=== PATIENT | male | born 1945 | race Caucasian/White ===

== ENCOUNTER 2016-10-23 10:24 | Emergency (ER) | payer MEDICARE ==
[~2016-10-23] VITALS: Ht 175.3 cm; Wt 80.2 kg
[~2016-10-23 10:24] MED LIST: CETI10 PO; OCUF0.3D OU; SIMV40TA PO; TAMS0.4C67 PO; WARF-20 PO; WARF-60 PO
[2016-10-23 10:50] VITALS: BP 119/74; PULSE 90; RESP 16; TEMP 98.8; O2SAT 98
[2016-10-23] MEDS ORDERED: OFLO0.3D9 EACH EAR (12:00)
[2016-10-23] MEDS ORDERED: TAMS5CAP PO (12:00)
[2016-10-23] MEDS ORDERED: WARF-20 PO (12:00)
[2016-10-23] MEDS ORDERED: WARF-60 PO (12:00)
[2016-10-23] MEDS ORDERED: SIMV40TA PO (12:00)
[2016-10-23] MEDS ORDERED: CETI10 PO (12:00)
[2016-10-23] MEDS ORDERED: LISI-519 PO (12:01)
--- NOTE | 2016-10-23 13:15 | PD ---
HPI Chief Complaint: ENT Complaint Time Seen by Provider: 13:06 Travel History International Travel<30 days: No Contact w/Intl Traveler<30days: No Traveled to known affect area: No History of Present Illness HPI 71-year-old male presents to the emergency Department with complaint of dry cough 3 days. Reports subjective fever but has not been able to take his temperature secondary to not having a thermometer. Reports a "little shortness of breath." Denies chest pain. Denies hemoptysis. Cough is worse at night. Reports mild nasal congestion. Denies nausea, vomiting. Does take a seasonal allergy medication that has helped dry up his nasal congestion. Has history of DVT and pneumothorax and is currently taking Coumadin. No aggravating factors. History of hypertension, diabetes, right nephrectomy. No other modifying factors or associated signs and symptoms. PFSH Past Medical History High Cholesterol: Yes Diminished Hearing: No Deep Vein Thrombosis: Yes (FREQUENT CLOTS) Influenza Vaccination: Yes PNEUMOCCOCAL Vaccine (Year): 2010 Past Surgical History Joint Replacement: Yes (L SHOULDER) Thoracic Surgery: Yes (IVC FILTER) Other Surgery: Yes (LEFT HERNIA; rt kidney) Social History Alcohol Use: No Tobacco Use: No Substance Use: No Allergies-Medications (Allergen,Severity, Reaction): Coded Allergies: Methocarbamol (Unverified Allergy, Unknown, 10/23/16) Terazosin (Unverified Allergy, Unknown, 10/23/16) Reported Meds & Prescriptions Reported Meds & Active Scripts Active Tessalon Perles (Benzonatate) 100 Mg Cap 100 Mg PO TID PRN Proair Hfa 8.5 GM Inh (Albuterol Sulfate) 90 Mcg/Act Aer 2 Puff INH Q4-6H PRN 108 mcg/actuation Reported Lisinopril 5 Mg Tab 5 Mg PO DAILY Warfarin 6 Mg Tab 6 Mg PO WED Warfarin 4 Mg Tab 4 Mg PO S,TUCKER,M,T,TH,F Flomax (Tamsulosin HCl) 0.4 Mg Cap 0.4 Mg PO HS Simvastatin 40 Mg Tab 40 Mg PO HS Ofloxacin Otic Drops 0.3 % Drops 5 Drop EACH EAR DAILY PRN Cetirizine (Cetirizine HCl) 10 Mg Tab 10 Mg PO DAILY Review of Systems Except as stated in HPI: all other systems reviewed are Neg Physical Exam Narrative GENERAL: Well-nourished, well-developed elderly, male patient, in no acute distress; afebrile SKIN: Warm and dry. No rash. HEAD: Atraumatic. Normocephalic. EYES: Pupils equal and round at 3 mm with brisk reaction. No scleral icterus. No injection or drainage. PERRLA. ENT: Mucosa pink and moist. No erythema or exudates. No uvular edema. No uvular , palatal, or tonsillar deviation. Airway patent. EARS: Bilateral pinnae and external canals appear within normal limits. Bilateral tympanic membranes without erythema, dullness or perforation. NECK: Trachea midline. No lymphadenopathy. CARDIOVASCULAR: Regular rate and rhythm. No murmur appreciated. RESPIRATORY: No accessory muscle use. Clear to auscultation; slightly decreased in bilateral bases. Breath sounds equal bilaterally. GASTROINTESTINAL: Abdomen soft, non-tender, nondistended. Hepatic and splenic margins not palpable. Bowel sounds are active 4 quadrants. MUSCULOSKELETAL: No obvious deformities. No clubbing. No cyanosis. No edema. NEUROLOGICAL: Awake and alert. Oriented 3. No obvious cranial nerve deficits. Motor grossly within normal limits. Normal speech. Moves all extremities. 5/5 strength to all extremities. PSYCHIATRIC: Appropriate mood and affect; insight and judgment normal. Data Data Last Documented VS Vital Signs Date Time Temp Pulse Resp B/P Pulse Ox O2 Delivery O2 Flow Rate FiO2 10/23/16 13:23 97 21 10/23/16 10:50 98.8 90 16 119/74 Orders Chest, Single Ap (10/23/16 13:06) Albuterol Neb (Albuterol Neb) (10/23/16 13:30) MDM Medical Decision Making Medical Screen Exam Complete: Yes Emergency Medical Condition: Yes Medical Record Reviewed: Yes Differential Diagnosis Acute bronchitis, viral illness, influenza Narrative Course 71-year-old male with dry cough 3 days. Reports subjective fever. Patient is afebrile and nontoxic appearing in the ER. He is in no acute distress and is without retractions or tachypnea. Oxygen saturation is 98% on room air. He is complaining of "a little bit of shortness of breath." Lungs sounds are clear and equal bilaterally with slightly decreased lung sounds in bilateral bases. Currently takes Coumadin for history of DVT. Has history of pneumothorax. Findings are consistent with an acute bronchitis. Albuterol treatment administered in ER. Chest x-ray ordered. 1355: Chest x-ray unremarkable. Patient reports improvement in symptoms. It lung sounds are clear and equal bilaterally. Amoxicillin, Pro Air inhaler, Tessalon Perles prescribed for home.Patient is medically cleared and stable for discharge. Discussed reasons to return to the emergency department. Instructed patient to follow up with primary care provider. Patient agrees with treatment plan. The patients vital signs are stable and the patient is stable for outpatient follow-up and treatment. Patient discharged home, stable and in no acute distress. Diagnosis Primary Impression: Bronchitis Referrals: Primary Care Physician Patient Instructions: Acute Bronchitis (ED), Cold Symptoms (ED), General Instructions Additional Instructions: Antibiotics as prescribed Use albuterol inhaler 2-4 puffs every 4 hours at home as needed for shortness of breath and wheezing avoid asthma triggers such as second hand smoke, dust, known allergens [id number] antihistamine or decongestants as directed and as needed for symptom management Increase fluid intake to prevent dehydration Turn off ceiling fan at night Elevate head of bed at night for symptom management Hot air humidifier for symptom management Follow-up with primary care provider within 1 to 2 days Return to emergency department immediately with worsening of symptoms Med/Other Pt SpecificInfo: Prescription(s) given Scripts Amoxicillin 500 Mg [id number] Mg PO BID 10 Days Ref 0 Prov:Gi CohenP 10/23/16 Benzonatate (Tessalon Perles)100 Mg [id number] Mg PO TID PRN (COUGH) #21 CAP Ref 0 Prov:Gi CohenP 10/23/16 Albuterol 8.5 GM Inh (Proair Hfa 8.5 GM Inh)90 Mcg/Act Aer2 Puff INH Q4-6H PRN ( SOB/WHEEZING) #1 INHALER Ref 0 108 mcg/actuation Prov:Gi Cohen 10/23/16 Disposition: 01 DISCHARGE HOME Condition: Stable Gi Cohen Oct 23, 2016 13:15
[2016-10-23 13:23] VITALS: O2SAT 97
[2016-10-23] MEDS ORDERED: RESP: ALBUTEROL 2.5 MG/3 ML NEB (SCH) INH ONE (13:30)
--- NOTE | 2016-10-23 13:32 | RADHPO ---
EXAM DATE/TIME: 10/23/2016 13:16 [facility] COMPARISON: No previous studies available for comparison. INDICATIONS : Cough. MEDICAL HISTORY : None. SURGICAL HISTORY : None. ENCOUNTER: Initial ACUITY: 3 days PAIN SCORE: 1/10 LOCATION: Bilateral chest FINDINGS: A single view of the chest demonstrates the lungs to be symmetrically aerated without evidence of mas s, infiltrate or effusion. The cardiomediastinal contours are unremarkable. Osseous structures are intact. Linear scarring left lung base. Aortic calcification. CONCLUSION: No acute disease. Tremaine Valencia MD on October 23, 2016 at 13:30 Board Certified Radiologist. This report was verified electronically.
[2016-10-23] MEDS ORDERED: ALBUAER3 INH (13:47)
[2016-10-23] MEDS ORDERED: BENZ100 PO (13:47)
[2016-10-23] MEDS ORDERED: AMOX500T PO (13:57)
== END 2016-10-23 14:04 | disposition home or self-care (01) ==
LOC: PHEFT 10:24
DX: J40 Bronchitis, not specified as acute or chronic (principal); R06.02 Shortness of breath; E78.00 Pure hypercholesterolemia, unspecified
CPT/HCPCS: 71010; 94664; 99283; J7613

== ENCOUNTER 2016-10-28 00:05 | Emergency (ER) | payer MEDICARE, OTHER ==
[~2016-10-28] VITALS: Ht 175.3 cm; Wt 82.0 kg
[~2016-10-28 00:05] MED LIST changes: +ALBUAER3 INH; +AMOX500T PO; +BENZ100 PO; +LISI-519 PO; -OCUF0.3D OU; +OFLO0.3D9 EACH EAR; -TAMS0.4C67 PO; +TAMS5CAP PO
[2016-10-28 00:10] VITALS: BP 155/91; PULSE 166; RESP 22; TEMP 97.9; O2SAT 93
[2016-10-28] MEDS ORDERED: WARF-20 PO (00:23)
[2016-10-28 00:30] VITALS: BP 154/71; PULSE 80; RESP 20; O2SAT 95
--- NOTE | 2016-10-28 00:53 | PD ---
HPI Chief Complaint: Allergic/Adverse Reaction Time Seen by Provider: 00:46 Travel History International Travel<30 days: No Contact w/Intl Traveler<30days: No Traveled to known affect area: No History of Present Illness HPI 71-year-old male presents to the emergency department by private transportation for complaint of pruritus and allergic reaction. Patient states he was seen here in the emergency department 10/24/16 and diagnosed with bronchitis as well as given prescription for Tessalon Perles and amoxicillin. Patient notes since beginning these medications she has developed a pruritic rash and this evening developed swelling of the upper lip. Patient denies any tongue or throat swelling. No report of stridor or hoarseness shortness of breath chest pain palpitations syncope near-syncope or syncope. Patient has history of diabetes. Patient is visiting from out of town. Patient states that the rash primarily bothers him at night allergies onset was Monday evening with severe pruritus and then during the day on felt fairly well and then recur pruritus this evening. Patient denies other concerns or complaints. Patient hasn't been using topical [id number] steroids. Patient did not take any Zyrtec Benadryl or Zantac. PFSH Past Medical History Narrative Medical DVT IVC filter diabetes dyslipidemia hypertension right nephrectomy left herniorrhaphy no tobacco use nursing notes reviewed High Cholesterol: Yes Diminished Hearing: No Deep Vein Thrombosis: Yes (FREQUENT CLOTS) Hypertension: Yes Psychiatric: Yes (PTSD) Influenza Vaccination: No PNEUMOCCOCAL Vaccine (Year): 2010 Past Surgical History Genitourinary Surgery: Yes (right nephrectomy) Joint Replacement: Yes (L SHOULDER) Thoracic Surgery: Yes (IVC FILTER) Other Surgery: Yes (LEFT HERNIA) Social History Alcohol Use: No Tobacco Use: No (QUIT 1989) Substance Use: No Allergies-Medications (Allergen,Severity, Reaction): Coded Allergies: Amoxicillin (Verified Allergy, Severe, RASH, 10/28/16) Tessalon Perles (Verified Allergy, Severe, RASH, 10/28/16) Methocarbamol (Unverified Allergy, Unknown, 10/28/16) Terazosin (Unverified Allergy, Unknown, 10/28/16) Lisinopril (Verified Adverse Reaction, Intermediate, LIP SWELLING, 10/28/16) POSSIBLY DUE TO LISINOPRIL. WAS ALSO TAKING AMOXICILLIN AND TESSELON PERLS WHEN HE HAD SWELLING OF HIS LIP AND GENERALIZED RASH AND ITCHING. Reported Meds & Prescriptions Reported Meds & Active Scripts Active Medrol Dosepak (Methylprednisolone) 4 Mg Dspk 4 Mg PO DIRECTED Per Pharmacist direction Norvasc (Amlodipine Besylate) 5 Mg Tab 5 Mg PO DAILY Amoxicillin 500 Mg Tab 500 Mg PO BID 10 Days Tessalon Perles (Benzonatate) 100 Mg Cap 100 Mg PO TID PRN Proair Hfa 8.5 GM Inh (Albuterol Sulfate) 90 Mcg/Act Aer 2 Puff INH Q4-6H PRN 108 mcg/actuation Reported Warfarin 4 Mg Tab 4 Mg PO DAILY Lisinopril 5 Mg Tab 5 Mg PO DAILY Flomax (Tamsulosin HCl) 0.4 Mg Cap 0.4 Mg PO HS Simvastatin 40 Mg Tab 40 Mg PO HS Ofloxacin Otic Drops 0.3 % Drops 5 Drop EACH EAR DAILY PRN Cetirizine (Cetirizine HCl) 10 Mg Tab 10 Mg PO DAILY Review of Systems Except as stated in HPI: all other systems reviewed are Neg Physical Exam Narrative GENERAL: Well-developed well-nourished male in no acute distress no respiratory distress no stridor no hoarseness SKIN: Warm and dry. Few urticarial changes. Focal midline upper lip area of edema. Few petechia of the lower legs. HEAD: Normocephalic. EYES: No scleral icterus. No injection or drainage. ENT: Mucous membranes moist no angioedema except for very small 1 cm area of the midline upper lip airway is patent NECK: Supple, trachea midline. No JVD or lymphadenopathy. CARDIOVASCULAR: Regular rate and rhythm without murmurs, gallops, or rubs. RESPIRATORY: Breath sounds equal bilaterally. No accessory muscle use. GASTROINTESTINAL: Abdomen soft, non-tender, nondistended. MUSCULOSKELETAL: No cyanosis, or edema. BACK: Nontender without obvious deformity. No CVA tenderness. Data Data Last Documented VS Vital Signs Date Time Temp Pulse Resp B/P Pulse Ox O2 Delivery O2 Flow Rate FiO2 10/28/16 02:05 64 18 156/74 97 Room Air 10/28/16 00:10 97.9 Orders Ecg Monitoring (10/28/16 00:46) Iv Access Insert/Monitor (10/28/16 00:46) Oximetry (10/28/16 00:46) Diphenhydramine Inj (Benadryl Inj) (10/28/16 01:00) Methylprednisolone So Succ Inj (Solumedr (10/28/16 01:00) Famotidine Inj (Pepcid Inj) (10/28/16 01:00) Sodium Chloride 0.9% Flush (Ns Flush) (10/28/16 01:00) Electrocardiogram (10/28/16 ) Complete Blood Count With Diff (10/28/16 00:46) Basic Metabolic Panel (Bmp) (10/28/16 00:46) Troponin I (10/28/16 00:46) Labs Laboratory Tests Test 10/28/16 01:00 White Blood Count 3.6 TH/MM3 Red Blood Count 5.18 MIL/MM3 Hemoglobin 15.4 GM/DL Hematocrit 46.8 % Mean Corpuscular Volume 90.3 FL Mean Corpuscular Hemoglobin 29.8 PG Mean Corpuscular Hemoglobin 33.0 % Concent Red Cell Distribution Width 12.4 % Platelet Count 127 TH/MM3 Mean Platelet Volume 8.9 FL Neutrophils (%) (Auto) 50.7 % Lymphocytes (%) (Auto) 33.6 % Monocytes (%) (Auto) 11.7 % Eosinophils (%) (Auto) 2.5 % Basophils (%) (Auto) 1.5 % Neutrophils # (Auto) 1.8 TH/MM3 Lymphocytes # (Auto) 1.2 TH/MM3 Monocytes # (Auto) 0.4 TH/MM3 Eosinophils # (Auto) 0.1 TH/MM3 Basophils # (Auto) 0.1 TH/MM3 CBC Comment DIFF FINAL Differential Comment Sodium Level 144 MEQ/L Potassium Level 4.3 MEQ/L Chloride Level 107 MEQ/L Carbon Dioxide Level 29.4 MEQ/L Anion Gap 8 MEQ/L Blood Urea Nitrogen 25 MG/DL Creatinine 1.50 MG/DL Estimat Glomerular Filtration 46 ML/MIN Rate Random Glucose 114 MG/DL Calcium Level 8.7 MG/DL Troponin I LESS THAN 0.02 NG/ML MDM Medical Decision Making Medical Screen Exam Complete: Yes Emergency Medical Condition: Yes Medical Record Reviewed: Yes Interpretation(s) CBC with automated differential mild decreased total white cell count of 2600 otherwise denies grossly normal range Metabolic panel renal insufficiency Troponin I less than 0.02, not elevated EKG normal sinus rhythm rate 64 no acute abnormalities Differential Diagnosis Allergic reaction, focal angioedema, adverse medication reaction, Valdes- Flaco syndrome, no evidence for anaphylaxis Narrative Course Patient with new medications Tessalon Perles and amoxicillin with allergic reaction onset Monday evening; patient presents for ongoing pruritus and now focal area of swelling of the upper lip. Patient reportedly identified to have a heart rate of 160 in triage however upon bed placement vital signs rechecked inpatient in sinus rhythm with a heart rate of 80. No report of chest pain shortness breath or palpitations near-syncope or syncope. No sweats no nausea vomiting. Diagnosis Primary Impression: Allergic reaction Qualified Code: T78.40XA - Allergic reaction, initial encounter Additional Impression: Angioedema Qualified Code: T78.3XXA - Angioedema, initial encounter Referrals: Primary Care Physician call for appointment Patient Instructions: General Instructions Additional Instructions: Stop amoxicillin and stop Tessalon Perles Take Benadryl 25-50 mg as often as every 4-6 hours as needed for itching or hives/allergic reaction Takes Zantac 150 twice daily for 5 days Takes Zyrtec 10 mg once daily for 5 days Complete course of Medrol Dosepak steroid taper Increase fluid hydration Return to the emergency department for any concerns or change in condition Do not take lisinopril for the next 5 days as lisinopril is noted for causing lip swelling Use Norvasc as prescribed for blood pressure control will not taking lisinopril Med/Other Pt SpecificInfo: Prescription(s) given Scripts Azithromycin (Zithromax Tri-Tommy)500 Mg [id number] Mg PO DAILY #1 DSPK Ref 0 Prov:Mima Galloway MD 10/28/16 Methylprednisolone Dosepak (Medrol Dosepak)4 Mg Dspk4 Mg PO DIRECTED #1 DSPK Ref 0 Per Pharmacist direction Prov:Mima Galloway MD 10/28/16 Amlodipine (Norvasc)5 Mg Tab5 Mg PO DAILY #30 TAB Ref 0 Prov:Mima Galloway MD 10/28/16 Disposition: 01 DISCHARGE HOME Condition: Stable Mima Galloway MD Oct 28, 2016 00:53
[2016-10-28] MEDS ORDERED: FAMOTIDINE 20 MG/2 ML VIAL IV PUSH ONE (01:00)
[2016-10-28] MEDS ORDERED: diphenhydrAMINE HCL 50 MG/ML VIAL IVP ONE (01:00)
[2016-10-28] MEDS ORDERED: methylPREDNISolone SOD SUCC 125 MG/2 ML VIAL IVP ONE (01:00)
[2016-10-28] MEDS ORDERED: SODIUM CHLORIDE 0.9% FLUSH 5 ML FLUSH IVF PRN (01:00)
[2016-10-28 01:12] LABS: AUTOMATED NEUTROPHIL # 1.8 TH/MM3 (1.8-7.7); BASOPHIL # 0.1 TH/MM3 (0-0.2); BASOPHIL % 1.5 % (0.0-2.0); EOSINOPHIL # 0.1 TH/MM3 (0-0.4); EOSINOPHIL % 2.5 % (0.0-4.0); HEMATOCRIT 46.8 % (39.0-51.0); HEMO FLAGS DIFF FINAL; LYMPH % 33.6 % (9.0-44.0); LYMPHOCYTE # 1.2 TH/MM3 (1.0-4.8); MEAN CELL VOLUME 90.3 FL (80.0-100.0); MEAN CORPUSCULAR HEMOGLOBIN 29.8 PG (27.0-34.0); MONO % 11.7 % (0.0-8.0); NEUT % 50.7 % (16.0-70.0); PLATELET COUNT 127 TH/MM3 (150-450); RED BLOOD COUNT 5.18 MIL/MM3 (4.50-5.90); RED CELL DISTRIBUTION WIDTH 12.4 % (11.6-17.2); WHITE BLOOD COUNT 3.6 TH/MM3 (4.0-11.0)
[2016-10-28 01:19] LABS: CHLORIDE 107 MEQ/L (98-107); POTASSIUM 4.3 MEQ/L (3.5-5.1); SODIUM (NA) 144 MEQ/L (136-145)
[2016-10-28 01:22] LABS: ANION GAP 8 MEQ/L (5-15); BICARBONATE 29.4 MEQ/L (21.0-32.0); BLOOD UREA NITROGEN 25 MG/DL (7-18)
[2016-10-28 01:25] LABS: GLOMERULAR FILTRATION RATE 46 ML/MIN (>89)
[2016-10-28 02:05] VITALS: BP 156/74; PULSE 64; RESP 18; O2SAT 97
[2016-10-28] MEDS ORDERED: MEDR4PAK PO (02:24)
[2016-10-28] MEDS ORDERED: AMLO5 PO (02:24)
[2016-10-28] MEDS ORDERED: ZITHTAB2 PO (02:42)
--- NOTE | 2016-10-28 14:29 | EKG ---
Date Performed: 10/28/2016 Time Performed: 01:11:52 PTAGE: 71 years EKG: Sinus rhythm Normal ECG NO PREVIOUS TRACING DOCTOR: Courtney Harrell Interpretating Date/Time 10/28/2016 14:22:42
== END 2016-10-28 02:54 | disposition home or self-care (01) ==
LOC: PHED 00:05
DX: T48.3X5A Adverse effect of antitussives, initial encounter (principal); T36.0X5A Adverse effect of penicillins, initial encounter; T78.3XXA Angioneurotic edema, initial encounter; I10 Essential (primary) hypertension; E78.00 Pure hypercholesterolemia, unspecified; E11.9 Type 2 diabetes mellitus without complications; L29.8 Other pruritus; X58.XXXA Exposure to other specified factors, initial encounter
CPT/HCPCS: 80048; 84484; 85025; 93005; 96374; 96375; 99283; J1200; J2930